=== PATIENT | female | born 1990 | race Caucasian/White ===

== ENCOUNTER 2017-01-11 17:50 | Emergency (ER) | payer MEDICAID | END 2017-01-11 19:05 | disposition left against medical advice (07) | LOC: UCCORT 17:50 | DX: J02.9 Acute pharyngitis, unspecified (principal); R50.9 Fever, unspecified; Z53.21 Procedure and treatment not carried out due to patient leaving prior to being seen by health care provider ==

== ENCOUNTER 2017-01-14 12:42 | Emergency (ER) | payer MEDICAID, OTHER ==
[2017-01-14 13:14] VITALS: BP 139/80
[2017-01-14] MEDS ORDERED: Albuterol/Ipratropium NEB.SOL* Albuterol 2.5 MG/Ipratropium 0.5 MG 3 ML INH ONE (13:21)
--- NOTE | 2017-01-14 13:24 | UC ---
Throat Pain/Nasal Coleman HPI - HPI Summary HPI Summary: complaint of nasal congestion and cough for 2 days dx with strep throat saturday at [facility] saturday started to get nasal congestion coughing has worsened espcially at night feels wheezing in her chest and orse with exertion has run out of albuterol denies fever and chills - History of Current Complaint Chief Complaint: UCRespiratory Stated Complaint: NASAL/CHEST CONGESTION COUGH Time Seen by Provider: 01/14/17 13:13 Hx Obtained From: Patient Hx Last Menstrual Period: 12/23/16 - Allergies/Home Medications Allergies/Adverse Reactions: Allergies Allergy/AdvReac Type Severity Reaction Status Date / Time Cephalexin [From Keflex] Allergy Hives Verified 01/14/17 13:07 Home Medications: Home Medications Albuterol HFA INHALER* [Ventolin HFA Inhaler*] 1 - 2 puff INH Q4H PRN 01/14/17 [ History Confirmed 01/14/17] Cetirizine* [ZyrTEC 10 MG TAB*] 10 mg PO DAILY 01/14/17 [History Confirmed 01/14] Penicillin VK TAB 500 MG(NF) [Penicillin VK 500 mg Tab(NF)] 500 mg PO BID PRN [History Confirmed 01/14/17] PMH/Surg Hx/FS Hx/Imm Hx Previously Healthy: Yes Respiratory History: Asthma - Surgical History Surgical History: Yes Surgery Procedure, Year, and Place: C-Sections, 2005 ([place]) 2009 2010, [place] - Family History Known Family History: Negative: Cardiac Disease, Hypertension, Diabetes - Social History Occupation: Unemployed Lives: With Family Alcohol Use: None Substance Use Type: Marijuana Substance Use Comment - Amount & Last Used: Daily & "this morning" Smoking Status (MU): Heavy Every Day Tobacco Smoker Type: Cigarettes Amount Used/How Often: 1 PPD Length of Time of Smoking/Using Tobacco: Since Age 12 Household Exposure Type: Cigarettes Cessation Counseling: Patient Advised to Stop - Immunization History Most Recent Influenza Vaccination: Not the 2016/2016 Season Review of Systems Constitutional: Negative Skin: Negative Eyes: Negative ENT: Sore Throat, Nasal Discharge Respiratory: Cough Cardiovascular: Negative Gastrointestinal: Negative Genitourinary: Negative Motor: Negative Neurovascular: Negative Musculoskeletal: Negative Neurological: Negative Psychological: Negative All Other Systems Reviewed And Are Negative: Yes Physical Exam Triage Information Reviewed: Yes Appearance: No Pain Distress, Well-Nourished, Obese Vital Signs: Initial Vital Signs Temp 98.4 F 01/14/17 13:04 Pulse 95 01/14/17 13:04 Resp 18 01/14/17 13:04 BP 139/80 01/14/17 13:04 Pulse Ox 95 01/14/17 13:04 Vital Signs Reviewed: Yes Eyes: Positive: Conjunctiva Clear ENT: Positive: Pharyngeal erythema, Nasal congestion, Nasal drainage, TMs normal , Tonsillar swelling. Negative: Tonsillar exudate Neck: Positive: No Lymphadenopathy Respiratory: Positive: No respiratory distress, No accessory muscle use, Wheezing - throughout all mejias Cardiovascular: Positive: RRR, No Murmur, Pulses Normal Abdomen Description: Positive: Nontender, Soft, Distended Bowel Sounds: Positive: Present Musculoskeletal Exam: Normal Neurological: Positive: Alert Psychological Exam: Normal Skin Exam: Normal Re-Evaluation - Re-Evaluation First Eval Re-Evaluation Time: 13:40 Change: Improved - less wheezing throughout Throat Pain/Nasal Course/Dx - Course Course Of Treatment: exam completed. wheezing throughout all lung mejias- improvement with duoneb treatment. will treat for asthma exacerbation secondary to strep infection - Differential Dx/Diagnosis Differential Diagnosis/HQI/PQRI: Tonsillitis, Other - asthma Provider Diagnoses: asthma exacerbation Discharge - Discharge Plan Condition: Stable Disposition: HOME Prescriptions: Albuterol HFA INHALER* [Ventolin HFA Inhaler*] 2 puff INH Q4H PRN #1 mdi PRN Reason: Wheezing predniSONE TAB* [Deltasone TAB*] 50 mg PO DAILY #5 tab Patient Education Materials: Asthma (ED) Forms: *Work Release Referrals: Maria Del Rosario Longoria MD [Primary Care Provider] - Additional Instructions: Please take prednisone as directed continue your penicillin until it is completed Use your albuterol inhaler every 4-6 hours when needed for wheezing, shortness of breath or uncontrolled coughing. Increase fluids and rest Take acetaminophen or ibuprofen for fever or pain Please review your discharge instructions. If your symptoms do not improve please call your primary care provider or return to urgent care. Your blood pressure is elevated. Please contact your primary care provider within 1 -4 weeks for further evaluation.
== END 2017-01-14 13:47 | disposition home or self-care (01) ==
LOC: UCCORT 12:42
DX: J45.901 Unspecified asthma with (acute) exacerbation (principal); E66.9 Obesity, unspecified; Z88.1 Allergy status to other antibiotic agents; F17.210 Nicotine dependence, cigarettes, uncomplicated
CPT/HCPCS: 99212; A9270-GY; G0463

== ENCOUNTER 2018-06-06 17:18 | Emergency (ER) | payer MEDICAID, OTHER ==
[2018-06-06 18:26] VITALS: BP 129/70
--- NOTE | 2018-06-06 18:34 | UC ---
Complaint Female HPI - HPI Summary HPI Summary: 27 yo female presents with 2 days of right flank pain, burning with urinary, and urinary frequency but with small void amounts. She tells me that she has had UTIs in the past and this feels similar, but she doesn't usually feel them until they get "bad" and into "kidney infections". She has no recent hx of injury to her back or hx of kidney stones. She denies fever, chills, abdominal pain, n/v, vaginal discharge, or hematuria. - History Of Current Complaint Chief Complaint: UCGU Stated Complaint: URINARY Hx Obtained From: Patient Hx Last Menstrual Period: 05/27/18 Onset/Duration: Sudden Onset Severity Initially: Moderate Severity Currently: Moderate Pain Intensity: 8 Pain Scale Used: 0-10 Numeric - Allergies/Home Medications Allergies/Adverse Reactions: Allergies Allergy/AdvReac Type Severity Reaction Status Date / Time cephalexin Allergy Unknown Hives Verified 06/06/18 18:17 Home Medications: Home Medications Ibuprofen TAB* [Motrin TAB* 600 MG] 600 mg PO Q6H PRN 06/06/18 [History Confirmed 06/06/18] PMH/Surg Hx/FS Hx/Imm Hx Respiratory History: Asthma - Surgical History Surgical History: Yes Surgery Procedure, Year, and Place: C-Sections, 2005 ([place]) 2009 2010, [place] - Family History Known Family History: Negative: Cardiac Disease, Hypertension, Diabetes - Social History Occupation: Employed Full-time Lives: With Family Alcohol Use: None Substance Use Type: Marijuana Substance Use Comment - Amount & Last Used: Daily & "this morning" Smoking Status (MU): Heavy Every Day Tobacco Smoker Type: Cigarettes Amount Used/How Often: 1 PPD Length of Time of Smoking/Using Tobacco: Since Age 12 Household Exposure Type: Cigarettes - Immunization History Most Recent Influenza Vaccination: Not the 2016/2017 Season Review of Systems All Other Systems Reviewed And Are Negative: Yes Constitutional: Positive: Negative Skin: Positive: Negative Respiratory: Positive: Negative Cardiovascular: Positive: Negative Gastrointestinal: Positive: Negative Genitourinary: Positive: Dysuria, Frequency, Urgency Motor: Positive: Negative Neurological: Positive: Negative Psychological: Positive: Negative Physical Exam - Summary Physical Exam Summary: GENERAL: NAD. WDWN. No pain distress. SKIN: No rashes, sores, lesions, or open wounds. NECK: Supple. Nontender. No lymphadenopathy. CHEST: CTAB. No r/r/w. No accessory muscle use. Breathing comfortably and in no distress. CV: RRR. Without m/r/g. Pulses intact. Cap refill <2seconds ABDOMEN: Soft. NTTP. Mild right CVA tenderness. Bowel sounds present NEURO: Alert. PSYCH: Age appropriate behavior. Triage Information Reviewed: Yes Vital Signs: Initial Vital Signs Temp 97.8 F 06/06/18 18:18 Pulse 94 06/06/18 18:18 Resp 18 06/06/18 18:18 BP 129/70 06/06/18 18:18 Pulse Ox 100 06/06/18 18:18 Laboratory Tests 06/06/18 18:36 POC Urine Color Yellow POC Urine Clarity Slightly cloudy POC Urine pH 5.5 POC Ur Specif Rachel 1.025 POC Urine Protein Negative POC Ur Glucose (UA) Negative POC Urine Ketones Negative POC Urine Blood Negative POC Urine Nitrite Negative POC Urine Bilirubin Negative POC Urine Urobilinogen 0.2 POC U Leukocyte Esteras Negative Vital Signs Reviewed: Yes Complaint Female Dx - Course Course Of Treatment: UA is negative. Low suspicion for kidney stone at this time as there is no blood in her urine, she has no hx of stone, and she has mostly urinary symptoms rather than sharp flank pain. Will treat her for a UTI symptomatically, but strongly encouraged her to be rechecked if her symptoms do not improve in 1-2 days. Pt voiced understanding and agreeable with plan. - Differential Dx/Diagnosis Provider Diagnoses: Dysuria. Flank pain Discharge - Sign-Out/Discharge Documenting (check all that apply): Patient Departure All imaging exams completed and their final reports reviewed: No Studies - Discharge Plan Condition: Stable Disposition: HOME Prescriptions: Ciprofloxacin TAB* [Cipro 250 MG Tab*] 250 mg PO BID #10 tab Patient Education Materials: Kidney Stones (ED), Urinary Tract Infection in Women (ED) Referrals: Maria Del Rosario Longoria MD [Primary Care Provider] - Additional Instructions: If you develop a fever, shortness of breath, chest pain, new or worsening symptoms - please call your PCP or go to the ED. 1) If your symptoms do not improve or if your pain worsens - please go to the ER - Billing Disposition and Condition Condition: STABLE Disposition: Home
== END 2018-06-06 18:59 | disposition home or self-care (01) ==
LOC: UCCORT 17:18
DX: R10.9 Unspecified abdominal pain (principal); R30.0 Dysuria
CPT/HCPCS: 81003; 87086; 99212; G0463